=== PATIENT | female | born 1950 ===

== ENCOUNTER 2017-01-31 09:17 | Emergency (ER) | payer OTHER ==
[2017-01-31 09:22] VITALS: BMI 26.5
[2017-01-31 09:25] VITALS: RESP 18; TEMP 98.3
--- NOTE | 2017-01-31 10:38 | ED PDOC ---
Lower Extremity Pain/Injury Time Seen by Provider: 01/31/17 09:54 Chief Complaint (Nursing): Lower Extremity Problem/Injury History Per: Patient History/Exam Limitations: no limitations Onset/Duration Of Symptoms: Gradual Current Symptoms Are (Timing): Still Present Severity: Moderate Additional History Per: Patient Additional Complaint(s): Pt states left leg pain for past few days. pain on movement. Medicating with tylenol last night at 12am with no relief. HX DVT. no trauma Past Medical History Reviewed: Historical Data, Nursing Documentation, Vital Signs Vital Signs: Last Vital Signs Temp 98.3 F 01/31/17 09:22 Pulse 117 H 01/31/17 09:22 Resp 18 01/31/17 09:22 BP 144/111 H 01/31/17 09:22 Pulse Ox 99 01/31/17 09:22 - Medical History PMH: Diabetes, HTN, Kidney Stones - Surgical History Surgical History: Appendectomy - Family History Family History: States: Unknown Family Hx - Living Arrangements Living Arrangements: With Family - Social History Current smoker - smoking cessation education provided: No - Home Medications Home Medications: Ambulatory Orders Medication Instructions Recorded Acetaminophen/Codeine Phosph 1 tab PO TID #10 tab 03/21/15 [Acetaminophen and Codeine Phosphate #3 300 mg] Ciprofloxacin [Cipro] 250 mg PO BID #14 tab 03/21/15 Tamsulosin HCl [Flomax] 0.4 mg PO DAILY #15 cap 03/21/15 Ciprofloxacin HCl [Cipro] 500 mg PO BID #14 tab 04/24/15 Tamsulosin [Flomax] 0.4 mg PO DAILY #14 cap 04/24/15 oxyCODONE/Acetaminophen [Percocet 1 tab PO Q6H PRN #10 tab 04/24/15 5/325 mg Tab] Cyclobenzaprine [Flexeril] 5 mg PO TID PRN #15 tab 01/31/17 - Allergies Allergies/Adverse Reactions: Allergies Allergy/AdvReac Type Severity Reaction Status Date / Time aspirin AdvReac NAUSEA Verified 01/31/17 09:34 Review of Systems ROS Statement: Except As Marked, All Systems Reviewed And Found Negative Constitutional: Negative for: Fever, Chills Cardiovascular: Negative for: Chest Pain, Palpitations Respiratory: Negative for: Cough, Shortness of Breath Gastrointestinal: Negative for: Nausea, Vomiting, Abdominal Pain Musculoskeletal: Positive for: Leg Pain (left). Negative for: Neck Pain Neurological: Negative for: Weakness, Numbness Physical Exam - Reviewed Nursing Documentation Reviewed: Yes Vital Signs Reviewed: Yes - Physical Exam Appears: Positive for: Well, No Acute Distress Head Exam: Positive for: ATRAUMATIC, NORMAL INSPECTION, NORMOCEPHALIC Eye Exam: Positive for: Normal appearance, EOMI, PERRL Neck: Positive for: Normal, Painless ROM, Supple Cardiovascular/Chest: Positive for: Regular Rate, Rhythm, Chest Non Tender. Negative for: Edema, Gallop Respiratory: Positive for: Normal Breath Sounds. Negative for: Decreased Breath Sounds, Accessory Muscle Use, Crackles Pulses-Dorsalis Pedis (L): 1+ Pulses-Dorsalis Pedis (R): 1+ Pulses-Femoral (L): 1+ Pulses-Femoral (R): 1+ Pulses-Post. Tibialis (L): 1+ Pulses-Post. Tibialis (R): 1+ Back: Positive for: Normal Inspection. Negative for: L CVA Tenderness, R CVA Tenderness Extremity: Positive for: Normal ROM, Calf Tenderness (mild on left), Capillary Refill (nml), Swelling (2+ to shines). Negative for: Pedal Edema, Deformity Neurologic/Psych: Positive for: Alert, solar tech II-XII, Oriented. Negative for: Motor/Sensory Deficits - Laboratory Results Result Diagrams: 01/31/17 10:42 01/31/17 10:42 - ECG ECG: Positive for: Interpreted By Sc ECG Rhythm: Positive for: Normal QRS, Normal ST Segment, Sinus Rhythm (rate of 91), Nonspecific Changes Interpretation Of Abn EKG: rate of 91, no evidence of ischemia O2 Sat by Pulse Oximetry: 99 Pulse Ox Interpretation: Normal - Progress ED Course And Treament: doppler us negative. advise close f/u with pmd Re-evaluation Time: 13:00 Condition: Improved Disposition - Clinical Impression Clinical Impression: Pain of left calf - Patient ED Disposition Is Patient to be Admitted: No Counseled Patient/Family Regarding: Studies Performed, Diagnosis, Need For Followup, Rx Given - Disposition Referrals: [facility] [Outside] (2 to 3 days or your private doctor) Disposition: Routine/Home Disposition Time: 14:17 Condition: GOOD Prescriptions: Cyclobenzaprine [Flexeril] 5 mg PO TID PRN #15 tab PRN Reason: Pain, Mild (1-3) Instructions: Leg Cramps (ED)
[2017-01-31 10:57] LABS: BASO # 0.1 K/uL (0.0-0.2); BASO % 0.7 % (0.0-2.0); EOS # 0.1 K/uL (0.0-0.7); EOS % 1.2 % (0.0-4.0); HEMOGLOBIN 14.4 g/dL (12.0-16.0); LYMPH # 2.1 K/uL (1.0-4.3); LYMPH % 26.7 % (20.0-40.0); MEAN CELL VOLUME 87.8 fl (81.0-99.0); MEAN CORPUSCULAR HEMOGLOBIN 29.6 pg (27.0-31.0); MEAN CORPUSCULAR HGB CONC 33.7 g/dL (33.0-37.0); MEAN PLATELET VOLUME 9.4 fl (7.2-11.7); MONO # 0.6 K/uL (0.0-0.8); NEUT # 4.9 K/uL (1.8-7.0); NEUT % 63.4 % (50.0-75.0); RBC 4.86 Mil/uL (3.80-5.20); RED CELL DISTRIBUTION WIDTH 12.7 % (11.5-14.5); WHITE BLOOD COUNT 7.7 K/uL (4.8-10.8)
[2017-01-31 11:25] LABS: PARTIAL THROMBOPLASTIN TIME 27.9 Seconds (25.6-37.1); PROTHROMBIN TIME 10.9 Seconds (9.8-13.1)
[2017-01-31 12:05] LABS: ALB/GLOB RATIO 1.7 (1.0-2.1); ALBUMIN 4.2 g/dL (3.5-5.0); ALT/SGPT 22 U/L (9-52); AST/SGOT 21 U/L (14-36); BLOOD UREA NITROGEN 13 mg/dl (7-17); CALCIUM 9.6 mg/dL (8.4-10.2); GFR AFRICAN-AMERICAN > 60; GFR NON-AFRICAN AMERICAN > 60
[2017-01-31 14:55] VITALS: BP 132/89; PULSE 81; O2SAT 100
--- NOTE | 2017-01-31 15:22 | US ---
HISTORY: pain and swelling r/o dvt . PRIORS: None. FINDINGS: 2-D, color and duplex Doppler analysis of the lower extremity venous circulation using routine protocol from the femoral veins through the popliteal veins. Venous compressibility: Normal. Flow and augmentation patterns: Normal. Visualized veins upper third of calf: Normal. Jacinto cyst: None. IMPRESSION: No sonographic or Doppler evidence for DVT in left lower extremity.
== END 2017-01-31 14:55 | disposition home or self-care (01) ==
LOC: H.ER 09:17
DX: M79.603 Pain in arm, unspecified (principal); E11.9 Type 2 diabetes mellitus without complications; I10 Essential (primary) hypertension